=== PATIENT | male | born 1970 | race Caucasian/White ===

== ENCOUNTER 2021-12-10 06:46 | Emergency (ER) | payer MEDICAID ==
[~2021-12-10] VITALS: Ht 177.8 cm; Wt 89.8 kg
[2021-12-10 07:15] VITALS: BP_SYST 144
--- NOTE | 2021-12-10 07:20 | NUR ---
Placed in room 3 . Placed on campus monitor, blood pressure machine and pulse oximeter. To gown for exam. Side rails up. Report given to MILTON BARBER.
--- NOTE | 2021-12-10 08:13 | NUR ---
Made contact with patient. Pt here from home with L NANCY swelling, reporting "cellulitis" and requesting antibiotics. Pt very loud, hyperreligious, labile upon face to face assessment. Provided pt with food upon request. Will continue to monitor closely.
--- NOTE | 2021-12-10 08:21 | NUR ---
Pt came to nursing station stating "I need to go check on my bike. I left my bike outside" and walked outside. Dr Tapia aware.
--- NOTE | 2021-12-10 08:26 | NUR ---
Dr Tapia placed orders for patient
[2021-12-10] MEDS ORDERED: VANCOMYCIN HCL 1,000 MG in D5W 250 ML IV ONE (08:30)
[2021-12-10] MEDS ORDERED: PIPERACILLIN/TAZO 3.38 GM in D5W 50 ML IV ONE (08:30)
[2021-12-10 09:03] LABS: BASOPHILS % (AUTO) 0.5 % (0.0-2.0); EOSINOPHILS # (AUTO) 0.1 K/uL (0.0-0.4); EOSINOPHILS % (AUTO) 2.6 % (0.0-4.0); HEMATOCRIT 41.1 % (36-54); HEMOGLOBIN 14.1 g/dL (14.0-18.0); LYMPHOCYTES # (AUTO) 0.7 K/uL (1.0-5.5); LYMPHOCYTES % (AUTO) 17.6 % (20.5-51.5); MEAN CORPUSCULAR HEMOGLOBIN 31 pg (27-31); MEAN CORPUSCULAR HGB CONC 34 % (32-36); MEAN CORPUSCULAR VOLUME 90 fL (79.0-98.0); MONOCYTES # (AUTO) 0.5 K/uL (0.0-1.0); MONOCYTES % (AUTO) 12.6 % (1.7-9.3); NEUTROPHILS # (AUTO) 2.6 K/uL (1.8-7.7); NEUTROPHILS % (AUTO) 66.7 % (40.0-70.0); PLATELET COUNT (AUTO) 145 K/uL (130-430); RED BLOOD CELL COUNT(AUTO) 4.57 MIL/uL (4.2-6.2); RED CELL DISTRIBUTION WIDTH 13.7 % (9.0-15.0)
--- NOTE | 2021-12-10 09:08 | NUR ---
# 20 gauge angiocath placed to L AC. Use of asceptic technique. Opsite placed over site. Blood return noted. Blood for lab drawn from site. Flushed with 10 cc of normal saline. No evidence of infiltration noted. Patient tolerated well.
[2021-12-10] MEDS ORDERED: VANCOMYCIN HCL 1000 MG/VIAL IV ONE (09:11)
[2021-12-10] MEDS ORDERED: PIPERACILLIN/TAZOBACTAM 3.375 GM/VIAL (ZOSYN) IV ONE (09:11)
[2021-12-10 09:16] LABS: CALCIUM 8.3 mg/dL (8.4-11.0); CREATININE 0.84 mg/dL (0.55-1.30); POTASSIUM 3.8 mmol/L (3.5-5.1)
[2021-12-10 09:17] LABS: PROTHROMBIN TIME 10.4 SECS (9.5-12.5)
[2021-12-10 09:21] LABS: ALBUMIN 3.1 g/dL (3.4-4.8); TOTAL BILIRUBIN 0.9 mg/dL (0.0-1.0)
[2021-12-10] MEDS ORDERED: NACL 0.9% 1,000 ML IV ONE (09:30)
--- NOTE | 2021-12-10 10:02 | NUR ---
Ultrasound being done at bedside
--- NOTE | 2021-12-10 10:43 | NUR ---
Pt remains labile and unpredictable, but is responding to redirection at this time. NAD reported. Will continue to monitor closely.
[2021-12-10] MEDS ORDERED: CLE150 PO (10:52)
--- NOTE | 2021-12-10 12:03 | NUR ---
Patient given written and verbal discharge instructions and verbalizes understanding. ER MD discussed with patient the results and treatment provided. Patient in stable condition. ID arm band removed. IV catheter removed intact and dressing applied, no active bleeding. Rx of Clindamycin given. Patient educated on pain management and to follow up with PMD. Pain scale 0/10. Opportunity for questions provided and answered. Medication side effect fact sheet provided.
[2021-12-10 12:05] VITALS: BP_SYST 137
== END 2021-12-10 12:03 | disposition home or self-care (01) ==
LOC: SED 06:46
DX: L03.116 Cellulitis of left lower limb (principal)
CPT/HCPCS: 36415; 80053; 83605; 85025; 85610; 87040; 93971; 96365; 96366; 96367; 99284; J2543; J3370